=== PATIENT | female | born 1975 | race Two or more races ===

== ENCOUNTER 2019-02-16 22:21 | Emergency (ER) | payer OTHER ==
[~2019-02-16] VITALS: Ht 165.1 cm; Wt 99.8 kg
--- OUTSIDE RECORDS SUMMARY | 2019-02-16 22:25 | XMS REPORT | Clinical Summary ---
Author Author [facility] Address Unknown Phone Unavailable Care Team Providers Care Internet Programmer Name Role Phone Sharpless PCP Allergies Comments Active Allergy Reactions Severity Noted Date Misoprostol 12/25/2016 Meperidine 12/25/2016 Doxycycline 12/25/2016 Morphine 12/25/2016 Metoclopramide Hcl 12/25/2016 Shellfish Containing 12/25/2016 Products Ketorolac 12/25/2016 Tramadol 12/25/2016 Medications End Date Status Medication Sig Dispensed Refills Start Date Active HYDROmorphone (DILAUDID) Take 4 mg by 0 4 MG tablet mouth every 4 (four) hours as needed for Pain. Active promethazine (PHENERGAN) Place 25 mg 0 25 MG suppository rectally every 6 (six) hours as needed for Nausea. Active promethazine (PHENERGAN) Take 25 mg by 0 25 MG tablet mouth every 6 (six) hours as needed for Nausea. Active ondansetron (ZOFRAN) 4 MG Take 4 mg by 0 tablet mouth 2 (two) times daily as needed for Nausea. Active pantoprazole (PROTONIX) Take 40 mg by 0 40 MG tablet mouth daily. Active sucralfate (CARAFATE) 1 Take 1 g by 0 gram tablet mouth 4 (four) times daily. Active simethicone (MYLICON) 80 Take 80 mg by 0 MG chewable tablet mouth every 6 (six) hours as needed for Flatulence. Active levETIRAcetam (KEPPRA) Take 250 mg 0 250 MG tablet by mouth 2 (two) times daily. Active ALPRAZolam (XANAX) 2 MG Take 2 mg by 0 tablet mouth every night as needed for Sleep. Active eletriptan (RELPAX) 20 MG Take 20 mg by 0 tablet mouth once as needed for Headaches Do NOT exceed eighty (80) mg in 24 hours. . Active montelukast (SINGULAIR) Take 10 mg by 0 10 mg tablet mouth nightly. Active cetirizine (ZYRTEC) 10 MG Take 10 mg by 0 tablet mouth daily. Active Problems Not on file Social History Date Tobacco Use Types Packs/Day Years Used Never Assessed Sex Assigned at Date Recorded Not on file Industry Job Start Date Occupation Not on file Not on file Not on file Travel End Travel History Travel Start No recent travel history available. Last Filed Vital Signs Not on file Plan of Treatment Not on file Results Not on fileafter 02/15/2018 Insurance Payer Benefit Subscriber ID Type Phone Address Plan / Group OTHER-COMMERCIAL GENERIC xxxxxxxxx COMMERCIAL
--- OUTSIDE RECORDS SUMMARY | 2019-02-16 22:25 | XMS REPORT ---
Author Author [facility] Address Unknown Phone Unavailable Care Team Providers Care Loaf Counter Name Role Phone Unavailable Unavailable Payers Payer Name Policy Type Policy Number Effective Date Expiration Date Problems This patient has no known problems. Allergies, Adverse Reactions, Alerts Allergy Name Allergy Type Status Severity Reaction(s) Onset Date Inactive Date Treating Clinician Comments misoprostol DA Active MO 2018-01-06 00:00:00 morphine DA Active MO 2018-01-06 00:00:00 ketorolac DA Active MO 2018-01-06 00:00:00 NSAIDS (Non-Steroidal Anti-Inflamma DA Active U 2017-03-12 00:00:00 doxycycline DA Active U 2016-04-19 00:00:00 meperidine DA Active U 2016-04-19 00:00:00 metoclopramide DA Active U 2016-04-19 00:00:00 shellfish derived DA Active U 2016-04-19 00:00:00 Medications This patient has no known medications.
[2019-02-16] MEDS ORDERED: ONDANSETRON HCL INJ 2MG/ML 2ML 2 MG/ML VIAL IV STA (22:54)
[2019-02-16] MEDS ORDERED: PROMETHAZINE 25MG/ NS 50ML (IV) IV ONE (23:00)
[2019-02-16] MEDS ORDERED: SODIUM CHLORIDE 0.9% 1000ML 1,000 ML IV SCH (23:00)
[2019-02-17] MEDS ORDERED: ONDANSETRON HCL INJ 2MG/ML 2ML 2 MG/ML VIAL IV STA (00:23)
[2019-02-17] MEDS ORDERED: FENTANYL CITRATE/PF 100MCG/2 ML INJ IV ONE (01:00)
== END 2019-02-17 00:45 | disposition home or self-care (01) ==
LOC: FSED 22:21
DX: R11.2 Nausea with vomiting, unspecified (principal); R10.13 Epigastric pain; K22.0 Achalasia of cardia; D84.1 Defects in the complement system
CPT/HCPCS: 80053; 85025; 99283; J2550